=== PATIENT | male | born 1990 | race Caucasian/White ===

== ENCOUNTER → 2016-04-14 | Outpatient (CLI) | payer BC ==
--- NOTE | 2016-04-14 12:39 | DX ---
Upper GI Series and Small Bowel Follow Through Clinical History: 26-year-old male with difficulty with eructation and intermittent epigastric pain. The patient had prior unrevealing endoscopy on April 17, 2015. Technique: Initially, a sales counselor abdominal radiograph was obtained. Additionally, while standing, a limi anne marie amount of effervescent crystals with a small quantity of water was ingested, followed by ingestio n of thick barium, and imaging of the hypopharynx of the cervical and thoracic esophagus was performe d. The patient also ingested a 13-mm barium tablet. Imaging of the duodenum was then performed, in a prone DONALD "drinking esophagus" with a Valsalva maneuver was imaged. Subsequently, additional Entero V u was ingested and sequential overhead radiographs of the small bowel was obtained, with supplementar y fluoroscopy acquired. Fluoroscopy Time: 3.7 minutes (exposure dose of 62.90 mGy). Comparison Study: Transcribed report of upper endoscopy performed by Dr. Chuck Coto of the [facility] in [place], [place], dated April 17, 2015. Findings: UPPER GI SERIES: There is appropriate oropharyngeal propulsion of the bolus into the hypopharynx with a normal, symmetrical appearance of the vallecula and the piriform sinuses. There was no aspiration. The posterior cervical esophagus is normal, with no cricopharyngeus spasm, achalasia, or Zenker's di verticulum. There is antegrade esophageal motility, and a normal-appearing mucosa. When the patient w ent from a standing to a supine position, there was some low-to-mid thoracic gastroesophageal reflux, which promptly cleared. There is no hiatal hernia, despite provocative maneuvers. The stomach is nor mal in size, shape, and position with a normal mucosal fold pattern. There is prompt egress of barium into a normal-appearing duodenal bulb and C-sweep. The patient was able to ingest a 13 mm barium tab let with prompt egress to the stomach. SMALL BOWEL FOLLOW-THROUGH SERIES: The initial sales counselor abdominal radiograph was unremarkable. There is appropriate positioning of the stomach, duodenum, ligament of Treitz, jejunum, and ileum, with no rolan ypoid lesion, diverticulum, or mechanical obstruction. Spot films of the terminal ileum are normal. T he small bowel intestinal transit time is within normal limits, reaching the cecum by one hour. Impression: 1. Intermittent mid-to-low level gastroesophageal reflux, noted when the patient was supine. 2. Normal small bowel follow through series.
== END ==
LOC: FIMAGING 09:07
PROVIDERS: ATTEND Internal Medicine Gastroenterology
DX: K21.9 Gastro-esophageal reflux disease without esophagitis (principal)